=== PATIENT | female | born 1935 | race Asian ===

== ENCOUNTER 2017-09-20 09:09 | Emergency (ER) | payer OTHER ==
[~2017-09-20] VITALS: Ht 152.4 cm; Wt 68.0 kg
[2017-09-20 09:18] VITALS: Ht 152.4 cm; Wt 68.0 kg
[2017-09-20 11:26] VITALS: BP 140/74
== END 2017-09-20 11:26 | disposition home or self-care (01) ==
LOC: ED 09:09
DX: S43.014A Anterior dislocation of right humerus, initial encounter (principal); I10 Essential (primary) hypertension; E78.00 Pure hypercholesterolemia, unspecified; W01.0XXA Fall on same level from slipping, tripping and stumbling without subsequent striking against object, initial encounter; Y93.89 Activity, other specified; Y99.8 Other external cause status; Y92.89 Other specified places as the place of occurrence of the external cause
CPT/HCPCS: J1885; J2704; J3010; Q0092